=== PATIENT | female | born 1965 | race Caucasian/White ===

== ENCOUNTER 2019-01-23 11:43 | Emergency (ER) | payer SELFPAY | END 2019-01-23 13:16 | disposition home or self-care (01) | LOC: ERS 11:43 | DX: M25.561 Pain in right knee (principal); F41.9 Anxiety disorder, unspecified; F32.9 Major depressive disorder, single episode, unspecified | CPT/HCPCS: 99283 ==

== ENCOUNTER 2019-03-31 11:16 | Emergency (ER) | payer SELFPAY ==
--- NOTE | 2019-03-31 12:00 | RAD ---
Radiograph right foot 3 views: HISTORY: Traumatic right foot pain after blunt trauma FINDINGS: No acute fracture or dislocation. 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 Small exostosis at medial aspect of proximal metaphysis of third proximal phalanx. No periostitis. IMPRESSION: 1. No fracture. 2. 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
== END 2019-03-31 12:18 | disposition home or self-care (01) ==
LOC: ERS 11:16
DX: S93.601A Unspecified sprain of right foot, initial encounter (principal); F41.9 Anxiety disorder, unspecified; F32.9 Major depressive disorder, single episode, unspecified; W55.19XA Other contact with horse, initial encounter

== ENCOUNTER 2019-04-19 17:14 | Emergency (ER) | payer SELFPAY ==
--- NOTE | 2019-04-19 17:46 | RAD ---
3 views right foot: 04/19/2019 COMPARISON: 03/31/2019 HISTORY: Swelling, recent trauma FINDINGS: Stable degenerative change of the first metatarsal-phalangeal joint. No displaced fracture or evidence of dislocation. Enthesophyte formation noted at the origin of the plantar aponeurosis. IMPRESSION: Chronic findings as detailed above. No acute findings are noted.
== END 2019-04-19 18:28 | disposition home or self-care (01) ==
LOC: ERS 17:14
DX: S90.121A Contusion of right lesser toe(s) without damage to nail, initial encounter (principal); F41.9 Anxiety disorder, unspecified; F32.9 Major depressive disorder, single episode, unspecified; Z79.899 Other long term (current) drug therapy; X58.XXXA Exposure to other specified factors, initial encounter